=== PATIENT | female | born 1970 | race Two or more races ===

== ENCOUNTER 2025-01-24 11:17 | Emergency (ER) | payer MEDICAID ==
[~2025-01-24] VITALS: Ht 157.5 cm; Wt 68.0 kg
[2025-01-24 11:21] VITALS: O2SAT 99
[2025-01-24 11:55] VITALS: TEMP 37; O2SAT 99
[2025-01-24 12:41] VITALS: BP 137/84; PULSE 95; RESP 17
[2025-01-24] MEDS: KETOROLAC 30MG/ML VIAL IM ONE (12:41)
== END 2025-01-24 14:43 | disposition home or self-care (01) ==
LOC: ER 11:17
DX: M54.10 Radiculopathy, site unspecified (principal); E11.9 Type 2 diabetes mellitus without complications; I10 Essential (primary) hypertension; Z88.5 Allergy status to narcotic agent; Z88.8 Allergy status to other drugs, medicaments and biological substances; Z91.041 Radiographic dye allergy status
CPT/HCPCS: 99283; 96372; J1885